=== PATIENT | male | born 1975 | race Asian ===

== ENCOUNTER 2020-02-18 21:57 | Emergency (ER) | payer SELFPAY ==
--- NOTE | 2020-02-18 22:53 | ER Document Report ---
ED General - General Chief Complaint: Sore Throat Stated Complaint: SORE THROAT,CHILLS Notes: Patient is a 45-year-old -Serbian male with no significant past medical history who presents to the emergency department with a chief complaint of sore throat. States it began yesterday with a runny nose. He states that today the runny nose has stopped and is now a scratchy sore throat. He states later on this evening he started to develop a faint dry cough as well. He states this feels like a [id number] cold to him but he lives with his [id number] who has several comorbidities and thought he should be evaluated for safety purposes. He did travel recently to [place] but reports that it was a road trip between him and his . States that they stayed together in [place] and were not around anyone or any big crowds. He has been religiously wearing his mask keeping his distance and washing his hands. He denies any fevers, vomiting, shortness of breath, chest pain, rashes. - Related Data Allergies/Adverse Reactions: No Known Allergies Allergy (Unverified 02/18/20 22:45) Past Medical History - Social History Smoking Status: Current Every Day Smoker Chew tobacco use (# tins/day): No Frequency of alcohol use: Occasional Drug Abuse: None Family History: Reviewed & Not Pertinent Patient has homicidal ideation: No Review of Systems - Review of Systems Constitutional: denies: Fever EENT: Throat pain Cardiovascular: denies: Chest pain Respiratory: Cough Gastrointestinal: denies: Abdominal pain Genitourinary: denies: Pain Male Genitourinary: denies: Penile discharge Musculoskeletal: denies: Muscle stiffness Skin: denies: Rash Hematologic/Lymphatic: denies: Easy bruising Neurological/Psychological: denies: Headaches Physical Exam - Vital signs Vitals: Temp Pulse Resp BP Pulse Ox 98.8 F 78 16 136/80 H 98 02/18/20 22:06 02/18/20 22:06 02/18/20 22:06 02/18/20 22:06 02/18/20 22:06 - General General appearance: Appears well, Alert In distress: None - HEENT Head: Normocephalic, Atraumatic Eyes: Normal Conjunctiva: Normal Extraocular movements intact: Yes Eyelashes: Normal Pupils: PERRL Ears: Normal External canal: Normal Tympanic membrane: Normal Nasal: Normal Mouth/Lips: Normal Mucous membranes: Normal, Moist Pharynx: Other - Mildly injected posterior pharynx. No tonsillar hypertrophy. No uvula edema. No exudate. Patent airway. Handling secretions well. No sublingual or submental swelling. No trismus. Neck: Supple. No: Lymphadenopathy - Respiratory Respiratory status: No respiratory distress Chest status: Nontender Breath sounds: Normal Chest palpation: Normal - Cardiovascular Rhythm: Regular Heart sounds: Normal auscultation - Neurological Neuro grossly intact: Yes Cognition: Normal Orientation: AAOx4 - Psychological Associated symptoms: Normal affect, Normal mood - Skin Skin Temperature: Warm Skin Moisture: Dry Skin Color: Normal Course - Re-evaluation Re-evalutation: 02/18/20 23:37 X-ray negative for acute process per radiologist. Strep test negative. Patient is well-appearing. His history and physical is consistent with a routine viral URI. The patient is in agreement with this. We discussed supportive care measures. Counseled him regarding the importance of outpatient follow-up with his primary doctor for insurance of resolution. Advised he return here or any ER immediately with any new, persistent or worsening symptoms. He verbalized understood and agreed. - Vital Signs Vital signs: Temp Pulse Resp BP Pulse Ox 98.8 F 78 16 136/80 H 98 02/18/20 22:23 02/18/20 22:06 02/18/20 22:06 02/18/20 22:06 02/18/20 22:06 Discharge - Discharge Clinical Impression: Viral URI Condition: Stable Disposition: HOME, SELF-CARE Instructions: Viral Syndrome ([facility]) Additional Instructions: Follow-up with your regular doctor in 2 to 3 days for reevaluation. Return here or any ER immediately with any new, persistent or worsening symptoms. Referrals: [facility] [NO LOCAL MD] - Follow up as needed
--- NOTE | 2020-02-18 23:33 | RADIOLOGY REPORT (SQ) ---
XR CHEST 1 VIEW HISTORY: Cough. COMPARISON: None. FINDINGS: The heart size is within normal limits. There is no pulmonary vascular congestion. No consolidation, pleural effusion, or pneumothorax is seen. No acute bony findings are seen. IMPRESSION: No evidence of acute cardiopulmonary disease.
[2020-02-19 00:08] VITALS: BP 126/85
== END 2020-02-19 00:19 | disposition home or self-care (01) ==
LOC: ER 21:57
DX: J06.9 Acute upper respiratory infection, unspecified (principal); B97.89 Other viral agents as the cause of diseases classified elsewhere; J02.9 Acute pharyngitis, unspecified; R05 Cough; F17.200 Nicotine dependence, unspecified, uncomplicated
CPT/HCPCS: 71045; 87070; 87077; 87880; 99284